=== PATIENT | male | born 1940 | race Caucasian/White ===

== ENCOUNTER 2021-05-01 23:02 | Emergency (ER) | payer SELFPAY ==
[2021-05-01] MEDS ORDERED: EPINEPHrine 1:10,000 (P-F SYR) 1 MG/10 ML DISP.SYRIN ONE (23:19)
[2021-05-01] MEDS ORDERED: SODIUM BICARBONATE 8.4% 50 MEQ/50 ML VIAL ONE (23:20)
[2021-05-01 23:39] VITALS: BP 00/00; PULSE 0; BMI 22.8
== END 2021-05-02 02:02 | disposition expired ==
LOC: JER 23:02
DX: I46.9 Cardiac arrest, cause unspecified (principal); I49.01 Ventricular fibrillation
CPT/HCPCS: 82962; 99291